=== PATIENT | female | born 1990 | race Caucasian/White ===

== ENCOUNTER 2016-11-06 23:56 | Emergency (ER) | payer OTHER ==
[~2016-11-06] VITALS: Ht 165.1 cm; Wt 124.4 kg
[~2016-11-06 23:56] MED LIST: CLEOCIN150 MG PO; HYDROCODON-ACE1 EAC7 PO; IBUPROFEN800 MG PO; KEFLEX500 MG PO; KLONOPIN1 MG PO; NIFEDIPINE ER60 MG PO; NOHOMEMEDS; ONDANSETRON HCL4 MG PO; PHENERGAN25 MG PR; PRENATAL MULTI1 EAC2 PO; PROMETHAZINE HC25 M1 PO; ZOFRAN8 MG PO; ZOLOFT25 MG PO
[2016-11-07 00:01] VITALS: BP 163/101
[2016-11-07 00:40] LABS: HEMATOCRIT 39.1 % (36.0-46.0); MCH 25.2 PG (29.0-34.0); MCV 78.7 FL (83-99); MEAN PLAT.VOLUME 10.8 uM^3 (9.5-12.4); PLATELET COUNT 285 K/uL (156-360); RBC DIS.WIDTH-CV 12.5 % (11.8-14.6); RED BLOOD COUNT 4.97 M/uL (3.80-5.20); WHITE BLOOD COUNT 11.8 K/uL (4.1-10.2)
[2016-11-07 00:50] LABS: CHLORIDE 107 mEq/L (99-109); POTASSIUM 3.8 mEq/L (3.7-5.4); SODIUM 141 mEq/L (136-147)
[2016-11-07 00:52] LABS: GLUCOSE 96 mg/dL (70-99)
[2016-11-07 00:53] LABS: ADD MIUA? NO; UCUL ADDED? NO
[2016-11-07 00:54] LABS: ANION GAP 10 MEQ/L (2-14); TOTAL BILIRUBIN 0.2 mg/dL (0.0-1.0)
[2016-11-07 00:54] LABS: COLOR YELLOW ((YELLOW)); LEUKOCYTES NEGATIVE; NITRITE NEGATIVE; SPECIFIC GRAVITY 1.025 (1.000-1.030)
[2016-11-07 00:55] LABS: BILIRUBIN NEGATIVE; BLOOD NEGATIVE; GLUCOSE (STRIP) NEGATIVE; KETONES NEGATIVE; PROTEIN (STRIP) TRACE; UROBILINOGEN 0.2 MG/DL (0.2-1.0)
[2016-11-07 00:56] LABS: ALKALINE PHOSPHATASE 69 IU/L (3-129); GFR ESTIMATE (CALCULATED) > 59 mL/min/
[2016-11-07 00:57] LABS: UREA NITROGEN (BUN) 14 mg/dL (9-23)
[2016-11-07 01:08] LABS: QUANTITATIVE HCG < 4.0 MIU/ML
== END 2016-11-07 04:00 | disposition left against medical advice (07) ==
LOC: EME 23:56
DX: R10.30 Lower abdominal pain, unspecified (principal); R35.0 Frequency of micturition; Z53.21 Procedure and treatment not carried out due to patient leaving prior to being seen by health care provider
CPT/HCPCS: 80053; 81003; 84702; 85027

== ENCOUNTER 2017-03-30 02:24 | Emergency (ER) | payer SELFPAY ==
[~2017-03-30] VITALS: Ht 165.1 cm; Wt 124.6 kg
[2017-03-30 03:10] LABS: HEMATOCRIT 39.6 % (36.0-46.0); MCH 24.8 PG (29.0-34.0); MCHC 30.8 G/DL (30.0-36.0); MCV 80.7 FL (83-99); MEAN PLAT.VOLUME 10.8 uM^3 (9.5-12.4); PLATELET COUNT 308 K/uL (156-360); RBC DIS.WIDTH-SD 34.9 % (39-53); RED BLOOD COUNT 4.91 M/uL (3.80-5.20); WHITE BLOOD COUNT 13.4 K/uL (4.1-10.2)
[2017-03-30 03:19] LABS: CHLORIDE 105 mEq/L (99-109); POTASSIUM 3.5 mEq/L (3.7-5.4); SODIUM 139 mEq/L (136-147)
[2017-03-30 03:21] LABS: GLUCOSE 93 mg/dL (70-99)
[2017-03-30 03:22] LABS: ANION GAP 11 MEQ/L (2-14)
[2017-03-30 03:25] LABS: GFR ESTIMATE (CALCULATED) > 59 mL/min/
[2017-03-30 03:26] LABS: UREA NITROGEN (BUN) 14 mg/dL (9-23)
[2017-03-30 05:06] LABS: ADD MIUA? YES; BILIRUBIN NEGATIVE; BLOOD NEGATIVE; COLOR YELLOW ((YELLOW)); GLUCOSE (STRIP) NEGATIVE; KETONES NEGATIVE; LEUKOCYTES NEGATIVE; NITRITE NEGATIVE; PROTEIN (STRIP) 100; UROBILINOGEN 0.2 MG/DL (0.2-1.0)
[2017-03-30 05:16] LABS: BACTERIA NONE SEEN /HPF; EPITHELIAL CELLS RARE /HPF; MUCUS TRACE /LPF; RED BLOOD CELLS 0-5 /HPF (0-5); UCUL ADDED? NO; WHITE BLOOD CELLS 0-5 /HPF (0-5)
[2017-03-30 05:52] VITALS: BP 133/88
== END 2017-03-30 05:54 | disposition home or self-care (01) ==
LOC: EME 02:24
DX: N12 Tubulo-interstitial nephritis, not specified as acute or chronic (principal)
CPT/HCPCS: 80048; 81003; 85027; 99281; 99284; J1885

== ENCOUNTER 2018-04-04 03:41 | Emergency (ER) | payer OTHER ==
[~2018-04-04] VITALS: Ht 165.1 cm; Wt 128.6 kg
[2018-04-04 04:12] LABS: APPEARANCE CLEAR ((CLEAR)); BILIRUBIN NEGATIVE; BLOOD SMALL; COLOR YELLOW ((YELLOW)); GLUCOSE (STRIP) NEGATIVE; KETONES NEGATIVE; LEUKOCYTES NEGATIVE; NITRITE NEGATIVE; PROTEIN (STRIP) 30; SPECIFIC GRAVITY 1.032 (1.000-1.030); UROBILINOGEN 0.2 MG/DL (0.2-1.0)
[2018-04-04 04:15] LABS: BACTERIA NONE SEEN /HPF; EPITHELIAL CELLS RARE /HPF; MUCUS TRACE /LPF; RED BLOOD CELLS 0-5 /HPF (0-5); UCUL ADDED? NO; WHITE BLOOD CELLS 0-5 /HPF (0-5)
[2018-04-04 06:23] LABS: HEMATOCRIT 41.2 % (36.0-46.0); HEMOGLOBIN 13.1 G/DL (11.9-15.5); MCHC 31.8 G/DL (30.0-36.0); MCV 81.7 FL (83-99); PLATELET COUNT 300 K/uL (156-360); RBC DIS.WIDTH-CV 12.1 % (11.8-14.6); RBC DIS.WIDTH-SD 35.8 % (39-53); RED BLOOD COUNT 5.04 M/uL (3.80-5.20); WHITE BLOOD COUNT 10.9 K/uL (4.1-10.2)
[2018-04-04 06:35] LABS: ALBUMIN 4.5 g/dL (3.2-4.8); CHLORIDE 106 mEq/L (99-109); POTASSIUM 4.1 mEq/L (3.7-5.4); SODIUM 141 mEq/L (136-147)
[2018-04-04 06:37] LABS: GLUCOSE 109 mg/dL (70-99); TOTAL PROTEIN 7.6 g/dL (6.4-8.3)
[2018-04-04 06:39] LABS: TOTAL BILIRUBIN 0.2 mg/dL (0.0-1.0)
[2018-04-04 06:41] LABS: ALKALINE PHOSPHATASE 86 IU/L (3-129); CREATININE 0.8 mg/dL (0.6-1.3); GFR ESTIMATE (CALCULATED) > 59 mL/min/
[2018-04-04 06:42] LABS: UREA NITROGEN (BUN) 15 mg/dL (9-23)
[2018-04-04 06:43] LABS: AST (GOT) 13 IU/L (2-34); DIRECT BILIRUBIN 0.1 mg/dL (0.0-0.3)
[2018-04-04 06:44] LABS: ALT (GPT) 16 IU/L (3-49); LIPASE 33 U/L (1.0-51.0)
[2018-04-04] MEDS ORDERED: KEFLEX500 MG PO (06:49)
[2018-04-04] MEDS ORDERED: ZOFRAN ODT8 MG PO (06:49)
[2018-04-04] MEDS ORDERED: NAPROSYN500 MG PO (06:49)
[2018-04-04 07:36] VITALS: BP 115/72
== END 2018-04-04 07:38 | disposition home or self-care (01) ==
LOC: EME 03:41
PROVIDERS: Physician Assistant
DX: R30.0 Dysuria (principal); R10.9 Unspecified abdominal pain; R11.0 Nausea; Z11.3 Encounter for screening for infections with a predominantly sexual mode of transmission; Z87.440 Personal history of urinary (tract) infections; Z88.0 Allergy status to penicillin; Z97.5 Presence of (intrauterine) contraceptive device
CPT/HCPCS: 74176; 80048; 80076; 81003; 81025; 83690; 85027; 87086; 99281; 99285; J1885